=== PATIENT | female | born 1940 | race Two or more races ===

== ENCOUNTER → 2024-01-06 | Outpatient (CLI) | payer MEDICARE, SELFPAY | END | disposition home or self-care (01) | PROVIDERS: Referring Provider Family Medicine; Visit Provider Family Medicine | DX: N39.0 Urinary tract infection, site not specified (principal) | CPT/HCPCS: 87077; 87086; 87186 ==

== ENCOUNTER 2024-03-11 19:58 | Emergency (ER) | payer MEDICARE, SELFPAY ==
[2024-03-11 19:58] VITALS: BMI 28.7
[2024-03-11 20:12] VITALS: BP 111/69; PULSE 75; RESP 16; TEMP 36.6; O2SAT 95
--- NOTE | 2024-03-11 20:14 | PD.EDRME ---
Rapid Medical Screening Exam RME Arrival date/time: 03/11/24 19:58 Chief Complaint: General Adult/Misc Complain Time Seen by Provider: 03/11/24 20:07 Vital signs: Vital Signs Temperature 97.8 F 03/11/24 20:12 Pulse Rate 75 03/11/24 20:12 Respiratory Rate 16 03/11/24 20:12 Blood Pressure 111/69 03/11/24 20:12 Pulse Oximetry (%) 95 03/11/24 20:12 Oxygen Delivery Method Room Air 03/11/24 20:12 RME Narrative: Referred from urgent care for further eval. Patient's blood pressure dropped in clinic after clonidine was administered. Currently on Macrobid for UTI.
[2024-03-11 20:43] LABS: Collection Type, Urine Clean Catch; RBC,Urine 0 /hpf (0-3); Squamous Epithelial Cell,Urine 0 /hpf (0-5); WBC,Urine 0 /hpf (0-5)
[2024-03-11 20:52] LABS: Basophils # (Auto) 0.1 Thou/mm3 (0.0-0.2); Basophils % (Auto) 1 % (0-2.5); Eosinophils # (Auto) 0.1 Thou/mm3 (0.0-0.5); Eosinophils % (Auto) 1 % (0-10); Hematocrit 34.5 % (36.0-46.0); Hemoglobin 12.1 g/dL (12.0-16.0); Immature Granulocytes % (Auto) 0 % (0-0); Immature Granulocytes Auto 0.03 Thou/mm3 (0.00-0.00); Lymphocytes # (Auto) 3.7 Thou/mm3 (1.0-4.8); Lymphocytes % (Auto) 46 % (10-50); Mean Corpuscular HGB Conc 35.1 g/dl (31.0-37.0); Mean Corpuscular Hemoglobin 30.9 pg (25.0-35.0); Mean Corpuscular Volume 88 fL (80-100); Monocytes # (Auto) 0.5 Thou/mm3 (0.0-0.8); Monocytes % (Auto) 6 % (0-12); Neutrophils # (Auto) 3.7 Thou/mm3 (1.8-7.7); Neutrophils % (Auto) 46 % (37-80); Nucleated Red Blood Cell % 0 /100 WBC (0); Platelet Count 247 Thou/mm3 (140-440); RDW Standard Deviation 40.8 fL (36.4-46.3); Red Blood Count 3.92 Miln/mm3 (4.00-5.20)
[2024-03-11 20:52] LABS: Bilirubin,Urine Negative (Negative); Blood,Urine Negative (Negative); Clarity,Urine Clear (Clear/Hazy); Color,Urine Colorless (Lt Yel-Yel); Glucose, Urine 4+ (Negative); Ketones,Urine Negative (Negative); Leukocyte Esterase,Urine Negative (Negative); Nitrite,Urine Negative (Negative); Protein,Urine Negative (Neg - Trace); Specific Gravity,Urine 1.003 (1.001-1.035); Urobilinogen,Urine Negative mg/dL (0.0-1.0)
[2024-03-11 21:14] LABS: Alanine Aminotransferase 27 U/L (10-49); Albumin, Serum 4.3 gm/dL (3.4-4.8); Albumin/Globulin Ratio 1.6 (1.2-2.2); Alkaline Phosphatase 86 U/L (46-116); Anion Gap 7 (7-16); Aspartate Amino Transferase 28 U/L (0-34); BUN/Creatinine Ratio 12 Ratio (12-20); Bilirubin,Total 0.4 mg/dL (0.3-1.2); Blood Urea Nitrogen 13 mg/dL (9-23); Calcium 9.4 mg/dL (8.3-10.6); Calcium (Corrected) 9.4 mg/dL (8.5-10.1); Carbon Dioxide 25.9 mMol/L (20.0-31.0); Chloride 100 mMol/L (98-107); Creatinine (Component) 1.1 mg/dL (0.6-1.3); Estimated Creatinine Clearance 37.9 mL/min (>60); Globulin 2.7 gm/dL (2.3-3.5); Glucose 243 mg/dL (74-106); Osmolality,Calculated 274 (275-295); Potassium 4.2 mMol/L (3.4-5.1); Sodium 133 mMol/L (136-145); eGFR 50 See Note
[2024-03-11 21:50] LABS: Glucose Estimated Average 197 mg/dL (80-131); Hemoglobin A1C 8.5 % Hgb (4.8-6.0)
[2024-03-11 21:59] VITALS: BP 121/72; PULSE 77; RESP 16; O2SAT 98
--- NOTE | 2024-03-11 22:04 | EDNOTE_ITS ---
ED General RME/HPI General Chief complaint: General Adult/Misc Complain Stated complaint: LOW BLOOD PRESSURE Time Seen by Provider: 03/11/24 20:07 Arrival date/time: 03/11/24 19:58 RME / HPI RME / HPI narrative: 84-year-old female patient was brought in by family for evaluation regarding hypotension. Patient initially went to urgent care for elevated blood pressure above 180 systolic, was given 0.2 mg of clonidine and since then patient developed dizziness sleepy and blood pressure on the mid 90s. Patient is currently taking antibiotic for UTI. Patient denies any fever denies any chest pain denies any abdominal pain denies any headache denies any other complaints no medication was taken prior to arrival. Related Data Home Medications ?Medication ?Instructions ?Recorded ?Confirmed insulin glargine 100 unit/mL 50 unit subcut QHS 11/07/17 05/23/21 subcutaneous solution (Lantus U-100 Insulin) sitagliptin phosphate 50 1 tab PO BID 11/07/17 05/23/21 mg-metformin 500 mg tablet (Janumet) metoprolol succinate 25 mg 25 mg PO QDAY 03/27/21 05/23/21 tablet,extended release 24 hr estradiol 10 mcg vaginal tablet 10 mcg vaginal DIRECTED 05/23/21 05/23/21 (Vagifem) Previous Rx's ?Medication ?Instructions ?Recorded dexamethasone 6 mg tablet 6 mg PO QDAY #6 tabs 11/17/19 Allergies Allergy/AdvReac Type Severity Reaction Status Date / Time sulfamethoxazole Allergy Mild Rash Verified 02/02/22 11:02 [From Bactrim] trimethoprim [From Bactrim] Allergy Mild Rash Verified 02/02/22 11:02 Review of Systems Review of Systems Narrative Review of Systems: Review of system reviewed and within normal limits except mentioned in HPI ED Exam Narrative Physical exam: VITAL SIGNS: Reviewed. GENERAL APPEARANCE: Alert and interactive, follows commands, no acute distress, HEAD AND FACE: Non-traumatic. ENT: PERRL, pink conjunctivitis, eyelid no trauma, Mucous membrane moist. NECK: Supple, nontender, no nuchal rigidity. CHEST: No tenderness, no crepitus, no paradoxical movement, no retractions. LUNGS: Clear, well ventilated, symmetric, no rales, no wheezing, no ronchi, no stridor, good breath sounds bilaterally. HEART: Regular rate, regular rhythm, no murmur, no gallops. ABDOMEN: Soft, positive bowel sounds, nondistended, no guarding, nontender, no rebound, no masses, RECTAL: Deferred. GENITAL: Deferred. NEUROLOGICAL: Gross motor function intact sensory function intact, Appropriate for age. MUSCULOSKELETAL: low back nontender, full range of motion. EXTREMITIES: Nontender, full range of motion. SKIN: Color pink, dry, no rash, no lacerations, no abrasions, no contusions. LYMPHATICS: Deferred. Course Quality Measures none Orders Category Date Time Status CBC Stat Lab 03/11/24 20:26 Completed CMP [Comprehensive Metabolic Panel] Stat Lab 03/11/24 20:26 Completed Hemoglobin A1C [Glycohemoglobin w (eAG)] Stat Lab 03/11/24 20:26 Completed UA [Urinalysis] Stat Lab 03/11/24 20:36 Completed Urine Culture Stat Lab 03/11/24 20:36 Received Vital Signs Vital signs: Vital Signs Temperature 97.8 F 03/11/24 20:12 Pulse Rate 75 03/11/24 20:12 Respiratory Rate 16 03/11/24 20:12 Blood Pressure 111/69 03/11/24 20:12 Pulse Oximetry (%) 95 03/11/24 20:12 Oxygen Delivery Method Room Air 03/11/24 20:12 [facility] Patient data External records reviewed:: None Clinical information provided by:: patient Social determinants that could affect healthcare access:: none Patient has the following chronic illnesses:: Hypertension How is presenting disease/condition affected by chronic disease/condition?: e xacerbated by Evaluation data The following diagnostics were reviewed and interpreted by me:: lab results and radiology exam(s) Lab and/or radiology exams considered but not ordered:: None Interpretation Summary: Laboratory workup today all came back unremarkable including urinalysis which is normal except for hemoglobin A1c of 8.5 and blood sugar 243. With no sign of diabetic ketoacidosis. Medications Medications considered but not ordered:: None Medication administrations:: None Consultations Consultation(s) initiated? (list below): No Diagnosis Differential Diagnosis ED Complaint MDM: Hypotension, adverse effect of medication, history of UTI Most likely diagnosis given after review of the tests above:: Adverse effect of medication Admission Indicated Admission indicated?: not indicated Explain why admission is indicated or not indicated:: Stable Admission Request Was there a request for admission?: No Disposition Plan Disposition Plan: Discharge Discharge Attestation Discharge Attestation: The patient and all family members were given an opportunity to ask questions and understood the discharge instructions. Discharge instructions specifically effects, indications for sooner follow up or return to the emergency department, and the expected course of current diagnosis. Patient condition: Stable Medical Decision Making MDM Narrative MDM Narrative: 84-year-old female patient was brought in by family for evaluation regarding hypotension. Patient initially went to urgent care for elevated blood pressure above 180 systolic, was given 0.2 mg of clonidine and since then patient developed dizziness sleepy and blood pressure on the mid 90s. Patient is currently taking antibiotic for UTI. Patient denies any fever denies any chest pain denies any abdominal pain denies any headache denies any other complaints no medication was taken prior to arrival. Patient's workup today all came back unremarkable including urinalysis which is normal except for hemoglobin A1c of 8.5 and blood sugar 243. With no sign of diabetic ketoacidosis. On multiple reevaluation patient verbalized significant improvement of symptoms, currently blood pressure was noted to be 121 over 72 heart rate of 77 and patient is ambulatory. Plan of care discussed with the patient and family regarding the effect of clonidine to her. Patient agrees with the plan to be discharged home stable per Differential Diagnosis Differential Diagnosis: Hypotension, adverse effect of medication, history of UTI Lab Data 03/11/24 20:26 03/11/24 20:26 Labs: Lab Results 03/11/24 03/11/24 Range/Units 20:26 20:36 WBC 8.0 (3.6-11.0) Thou/mm3 RBC 3.92 L (4.00-5.20) Miln/mm3 Hgb 12.1 (12.0-16.0) g/dL Hct 34.5 L (36.0-46.0) % MCV 88 (80-100) fL MCH 30.9 (25.0-35.0) pg MCHC 35.1 (31.0-37.0) g/dl RDW Std Deviation 40.8 (36.4-46.3) fL Plt Count 247 (140-440) Thou/mm3 Neut % (Auto) 46 (37-80) % Lymph % (Auto) 46 (10-50) % Dent % (Auto) 6 (0-12) % Eos % (Auto) 1 (0-10) % Baso % (Auto) 1 (0-2.5) % Neut # (Auto) 3.7 (1.8-7.7) Thou/mm3 Lymph # (Auto) 3.7 (1.0-4.8) Thou/mm3 Dent # (Auto) 0.5 (0.0-0.8) Thou/mm3 Eos # (Auto) 0.1 (0.0-0.5) Thou/mm3 Baso # (Auto) 0.1 (0.0-0.2) Thou/mm3 Immature Gran # (Auto) 0.03 H (0.00-0.00) Thou/mm3 Absolute Nucleated RBC 0.00 (0.00-0.00) Thou/mm3 Immature Gran % 0 (0-0) % Nucleated RBC % 0 (0) /100 WBC Sodium 133 L (136-145) mMol/L Potassium 4.2 (3.4-5.1) mMol/L Chloride 100 (98-107) mMol/L Carbon Dioxide 25.9 (20.0-31.0) mMol/L Anion Gap 7 (7-16) BUN 13 (9-23) mg/dL Creatinine 1.1 (0.6-1.3) mg/dL Estim Creat Clear Calc 37.9 L (>60) mL/min eGFR 50 L (60 - ) See Note BUN/Creatinine Ratio 12 (12-20) Ratio Glucose 243 H (74-106) mg/dL Estimated Ave Glu mg/dL 197 H (80-131) mg/dL Hemoglobin A1c 8.5 H (4.8-6.0) % Hgb Calculated Osmolality 274 L (275-295) Calcium 9.4 (8.3-10.6) mg/dL Corrected Calcium 9.4 (8.5-10.1) mg/dL Total Bilirubin 0.4 (0.3-1.2) mg/dL AST 28 (0-34) U/L ALT 27 (10-49) U/L Alkaline Phosphatase 86 (46-116) U/L Total Protein 7.0 (5.7-8.2) gm/dL Albumin 4.3 (3.4-4.8) gm/dL Globulin 2.7 (2.3-3.5) gm/dL Albumin/Globulin Ratio 1.6 (1.2-2.2) Ur Collection Type Clean Catch Urine Color Colorless A (Lt Yel-Yel) Urine Clarity Clear (Clear/Hazy) Urine pH 7.0 (5.0-7.0) Ur Specific Grant 1.003 (1.001-1.035) Urine Protein Negative (Neg - Trace) Urine Glucose (UA) 4+ A (Negative) Urine Ketones Negative (Negative) Urine Blood Negative (Negative) Urine Nitrite Negative (Negative) Urine Bilirubin Negative (Negative) Urine Urobilinogen (Auto) Negative (0.0-1.0) mg/dL Ur Leukocyte Esterase Negative (Negative) Urine RBC 0 (0-3) /hpf Urine WBC 0 (0-5) /hpf Ur Squamous Epith Cells 0 (0-5) /hpf Urine Bacteria None (None) Discharge Plan Plan Patient Disposition: HOME (Self Care) Disposition Comment: Stable Prescriptions/Referrals Prescriptions/Med Rec: No Action insulin glargine [Lantus U-100 Insulin] 100 unit/mL solution 50 unit SC QHS sitagliptin phos-metformin [Janumet] 50-500 mg tablet 1 tab PO BID metoprolol succinate 25 mg tablet extended release 24 hr 25 mg PO QDAY estradiol [Vagifem] 10 mcg tablet 10 mcg vaginal DIRECTED Patient Comments: twice a week dexamethasone 6 mg tablet 6 mg PO QDAY Qty: 6 0RF Referrals: Armando Trent MD [Primary Care Provider] - In 1 week Problem List Clinical Impression: Adverse effects of medication Patient/Caregiver Discharge Instructions Discharge Activity: activity as tolerated Education Materials: ED Drug Reaction, Other Additional Instructions: Thank you for the opportunity for serving you today. You are stable for discharged . You are advised to: Follow-up with your PCP in 1 to 2 days Return to ED for worsening of symptoms Increase oral fluids Print Language: Austrian Stand Alone Forms: Kelsi Award Info., Patient Portal Info Letter PA/DAVION Supervising Physician AYO/DAVION Supervising Physician: MD Elsa
== END 2024-03-11 22:10 | disposition home or self-care (01) ==
PROVIDERS: Physician Assistant; Emergency Provider Emergency Medicine; PCP Family Medicine
DX: I95.9 Hypotension, unspecified (principal); T50.905A Adverse effect of unspecified drugs, medicaments and biological substances, initial encounter
CPT/HCPCS: 36415; 80053; 81001; 83036; 85025; 87086; 99283

== ENCOUNTER → 2024-03-14 | Outpatient (CLI) | payer MEDICARE, SELFPAY | END | disposition home or self-care (01) | LOC: SLDO 14:59 | PROVIDERS: Referring Provider Nurse Practitioner Family; Visit Provider Nurse Practitioner Family | DX: N39.0 Urinary tract infection, site not specified (principal) | CPT/HCPCS: 87086 ==

== ENCOUNTER → 2024-04-03 | Outpatient (CLI) | payer MEDICARE, SELFPAY ==
[2024-04-03 13:11] LABS: Basophils # (Auto) 0.1 Thou/mm3 (0.0-0.2); Basophils % (Auto) 1 % (0-2.5); Eosinophils # (Auto) 0.1 Thou/mm3 (0.0-0.5); Eosinophils % (Auto) 1 % (0-10); Hematocrit 37.7 % (36.0-46.0); Immature Granulocytes % (Auto) 0 % (0-0); Immature Granulocytes Auto 0.03 Thou/mm3 (0.00-0.00); Lymphocytes # (Auto) 2.5 Thou/mm3 (1.0-4.8); Lymphocytes % (Auto) 33 % (10-50); Mean Corpuscular HGB Conc 34.5 g/dl (31.0-37.0); Mean Corpuscular Hemoglobin 30.8 pg (25.0-35.0); Mean Corpuscular Volume 89 fL (80-100); Monocytes # (Auto) 0.5 Thou/mm3 (0.0-0.8); Monocytes % (Auto) 6 % (0-12); Neutrophils # (Auto) 4.3 Thou/mm3 (1.8-7.7); Neutrophils % (Auto) 58 % (37-80); Nucleated Red Blood Cell % 0 /100 WBC (0); Platelet Count 222 Thou/mm3 (140-440); RDW Standard Deviation 41.9 fL (36.4-46.3); Red Blood Count 4.22 Miln/mm3 (4.00-5.20); White Blood Count 7.5 Thou/mm3 (3.6-11.0)
[2024-04-03 13:19] LABS: Glucose Estimated Average 206 mg/dL (80-131); Hemoglobin A1C 8.8 % Hgb (4.8-6.0)
[2024-04-03 13:28] LABS: Alanine Aminotransferase 27 U/L (10-49); Albumin, Serum 4.3 gm/dL (3.4-4.8); Albumin/Globulin Ratio 1.6 (1.2-2.2); Alkaline Phosphatase 85 U/L (46-116); Anion Gap 11 (7-16); Aspartate Amino Transferase 16 U/L (0-34); BUN/Creatinine Ratio 25 Ratio (12-20); Bilirubin,Total 0.3 mg/dL (0.3-1.2); Blood Urea Nitrogen 27 mg/dL (9-23); Calcium 9.5 mg/dL (8.3-10.6); Calcium (Corrected) 9.5 mg/dL (8.5-10.1); Carbon Dioxide 23.5 mMol/L (20.0-31.0); Chloride 104 mMol/L (98-107); Creatinine (Component) 1.1 mg/dL (0.6-1.3); Globulin 2.7 gm/dL (2.3-3.5); Glucose 247 mg/dL (74-106); Lipase 164 U/L (12-53); Magnesium 1.9 mg/dL (1.6-2.6); Osmolality,Calculated 288 (275-295); Potassium 4.8 mMol/L (3.4-5.1); Sodium 138 mMol/L (136-145); eGFR 50 See Note
[2024-04-11 06:49] LABS: C-Peptide* 6.67 ng/mL (0.80-3.85); Insulin* 51.4 uIU/mL (< OR = 18.4)
== END | disposition home or self-care (01) ==
LOC: COPL 12:03
PROVIDERS: PCP Family Medicine; Referring Provider Nurse Practitioner Family; Visit Provider Nurse Practitioner Family
DX: E11.9 Type 2 diabetes mellitus without complications (principal)
CPT/HCPCS: 36415; 80053; 83036; 83525; 83690; 83735; 84681; 85025

== ENCOUNTER → 2024-05-05 | Outpatient (CLI) | payer MEDICARE, SELFPAY | END | disposition home or self-care (01) | LOC: SLDO 14:26 | PROVIDERS: PCP Nurse Practitioner Family; Referring Provider Nurse Practitioner Family; Visit Provider Nurse Practitioner Family | DX: N30.20 Other chronic cystitis without hematuria (principal) | CPT/HCPCS: 87077; 87086; 87186 ==

== ENCOUNTER → 2024-05-30 | Outpatient (CLI) | payer MEDICARE, SELFPAY | END | disposition home or self-care (01) | LOC: SLDO 15:25 | PROVIDERS: PCP Nurse Practitioner Family; Referring Provider Nurse Practitioner Family; Visit Provider Nurse Practitioner Family | DX: N30.10 Interstitial cystitis (chronic) without hematuria (principal); Z16.12 Extended spectrum beta lactamase (ESBL) resistance | CPT/HCPCS: 87086 ==

== ENCOUNTER → 2024-07-20 | Outpatient (CLI) | payer MEDICARE, SELFPAY ==
--- NOTE | 2024-07-20 13:30 | XR_ITS ---
Examination: Retroperitoneal ultrasound, complete Technique: Multiple high resolution grayscale images of the retroperitoneum obtained, including kidneys and bladder. 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
== END | disposition home or self-care (01) ==
PROVIDERS: PCP Family Medicine; Referring Provider Nurse Practitioner Family; Visit Provider Nurse Practitioner Family
DX: N28.89 Other specified disorders of kidney and ureter (principal)
CPT/HCPCS: 76770

== ENCOUNTER → 2024-08-14 | Outpatient (CLI) | payer MEDICARE, SELFPAY ==
[2024-08-14 09:37] LABS: Basophils # (Auto) 0.1 Thou/mm3 (0.0-0.2); Basophils % (Auto) 1 % (0-2.5); Eosinophils # (Auto) 0.1 Thou/mm3 (0.0-0.5); Eosinophils % (Auto) 1 % (0-10); Hemoglobin 13.3 g/dL (12.0-16.0); Immature Granulocytes % (Auto) 0 % (0-0); Immature Granulocytes Auto 0.02 Thou/mm3 (0.00-0.00); Lymphocytes # (Auto) 2.2 Thou/mm3 (1.0-4.8); Lymphocytes % (Auto) 32 % (10-50); Mean Corpuscular Hemoglobin 31.4 pg (25.0-35.0); Mean Corpuscular Volume 90 fL (80-100); Monocytes # (Auto) 0.5 Thou/mm3 (0.0-0.8); Monocytes % (Auto) 7 % (0-12); Neutrophils # (Auto) 4.1 Thou/mm3 (1.8-7.7); Neutrophils % (Auto) 60 % (37-80); Nucleated Red Blood Cell % 0 /100 WBC (0); Platelet Count 235 Thou/mm3 (140-440); RDW Standard Deviation 43.7 fL (36.4-46.3); Red Blood Count 4.24 Miln/mm3 (4.00-5.20); White Blood Count 6.9 Thou/mm3 (3.6-11.0)
[2024-08-14 09:41] LABS: Glucose Estimated Average 151 mg/dL (80-131); Hemoglobin A1C 6.9 % Hgb (4.8-6.0)
[2024-08-14 09:51] LABS: Alanine Aminotransferase 19 U/L (10-49); Albumin, Serum 4.3 gm/dL (3.4-4.8); Albumin/Globulin Ratio 1.7 (1.2-2.2); Alkaline Phosphatase 71 U/L (46-116); Anion Gap 9 (7-16); Aspartate Amino Transferase 22 U/L (0-34); BUN/Creatinine Ratio 10 Ratio (12-20); Bilirubin,Total 0.7 mg/dL (0.3-1.2); Blood Urea Nitrogen 9 mg/dL (9-23); Calcium 9.4 mg/dL (8.3-10.6); Calcium (Corrected) 9.4 mg/dL (8.5-10.1); Carbon Dioxide 26.7 mMol/L (20.0-31.0); Chloride 107 mMol/L (98-107); Cholesterol 190 mg/dL (132-200); Creatinine (Component) 0.9 mg/dL (0.6-1.3); Globulin 2.6 gm/dL (2.3-3.5); Glucose 168 mg/dL (74-106); HDL Cholesterol 47 mg/dL (40-60); LDL Cholesterol,Calculated 104 mg/dL (0-130); Osmolality,Calculated 287 (275-295); Phosphorous 3.4 mg/dL (2.4-5.1); Potassium 4.6 mMol/L (3.4-5.1); Sodium 143 mMol/L (136-145); Total Protein 6.9 gm/dL (5.7-8.2); Triglycerides 197 mg/dL (30-150); eGFR > 60 See Note
== END | disposition home or self-care (01) ==
LOC: COPL 08:30
PROVIDERS: PCP Nurse Practitioner Family; Referring Provider Nurse Practitioner Family; Visit Provider Nurse Practitioner Family
DX: I10 Essential (primary) hypertension (principal); E78.5 Hyperlipidemia, unspecified; E11.65 Type 2 diabetes mellitus with hyperglycemia; R39.89 Other symptoms and signs involving the genitourinary system; R30.0 Dysuria; N39.0 Urinary tract infection, site not specified
CPT/HCPCS: 36415; 80053; 80061; 83036; 84100; 85025

== ENCOUNTER → 2024-08-22 | Outpatient (CLI) | payer MEDICARE, SELFPAY | END | disposition home or self-care (01) | LOC: SLDO 14:31 | PROVIDERS: PCP Nurse Practitioner Family; Referring Provider Nurse Practitioner Family; Visit Provider Nurse Practitioner Family | DX: N36.0 Urethral fistula (principal) | CPT/HCPCS: 87086 ==

== ENCOUNTER → 2024-09-06 | Outpatient (CLI) | payer MEDICARE, SELFPAY ==
--- NOTE | 2024-09-06 09:00 | XR_ITS ---
Examination: CT abdomen with intravenous contrast CT pelvis with intravenous contrast 2-D coronal reconstructions 2-D sagittal reconstructions Date and time of exam:September 16, 2024 0910 hours Comparison January 25, 2020 INDICATIONS: Dysuria, diagnosis urinary tract infection, site not specified, recurrent urinary tract infection history 5 years. CTDI: vol (mGy) 26.5 DLP: (mGycm) 1463 Technique: Multiple axial sections of the abdomen and pelvis have been obtained. 64 slice high-resolution scanner used. 3 mm axial sections have been obtained, post intravenous injection 60 cc [id number] 2-D sagittal, coronal reconstructions obtained. Low dose protocols were performed. One or more of the following dose reduction techniques were used; automated exposure control, adjustment of the mA and/or KV according to patient size, use of iterative reconstruction technique. Findings: No focal liver or splenic lesions Absent gallbladder Common hepatic duct 12 mm, no stones No pancreatic mass No renal or ureteral calculi, no hydronephrosis Aortic calcification no aneurysmal dilatation No bowel obstruction Normal appendix Atrophic uterus Intact urinary bladder with minimal urinary bladder wall thickening up to 4 mm Severe osteopenia with advanced disc narrowing L4-L5, L5-S1 IMPRESSION: Moderate renal parenchymal scar formation, no renal or ureteral calculi, no hydronephrosis Normal appendix Mild thickening of urinary bladder, consider cystitis
== END | disposition home or self-care (01) ==
LOC: CCTX 08:55
PROVIDERS: PCP Family Medicine; Referring Provider Nurse Practitioner Family; Visit Provider Nurse Practitioner Family
DX: N28.89 Other specified disorders of kidney and ureter (principal); N32.89 Other specified disorders of bladder
CPT/HCPCS: 74177; A4649; Q9967

== ENCOUNTER → 2024-09-18 | Outpatient (CLI) | payer MEDICARE, SELFPAY ==
--- NOTE | 2024-09-18 | XR_ITS ---
Examination: Shoulder,right, 3 views Technique: Shoulder AP internal rotation, AP external rotation, Y view shoulder, 3 views Exam date and time :September 18, 2024 1127 hours INDICATIONS: Right shoulder pain beginning one month ago. FINDINGS: Severe osteopenia. No fracture. Severe narrowing glenohumeral joint Prominent right shoulder calcific tendinitis Mild AC joint offset which may be old, clinical correlation advised IMPRESSION: Severe narrowing glenohumeral joint Prominent right shoulder calcific tendinitis
== END | disposition home or self-care (01) ==
PROVIDERS: PCP Student in an Organized Health Care Education/Training Program; Referring Provider Student in an Organized Health Care Education/Training Program; Visit Provider Student in an Organized Health Care Education/Training Program
DX: M75.31 Calcific tendinitis of right shoulder (principal); N39.0 Urinary tract infection, site not specified
CPT/HCPCS: 73030; 87077; 87086; 87186

== ENCOUNTER → 2024-12-15 | Outpatient (CLI) | payer MEDICARE, SELFPAY | END | disposition home or self-care (01) | LOC: SLDO 16:37 | PROVIDERS: PCP Nurse Practitioner Family; Referring Provider Nurse Practitioner Family; Visit Provider Nurse Practitioner Family | DX: N30.00 Acute cystitis without hematuria (principal) | CPT/HCPCS: 87077; 87086; 87186 ==